=== PATIENT | male | born 1985 | race Caucasian/White ===

== ENCOUNTER 2021-02-02 20:42 | Emergency (ER) | payer BC ==
[2021-02-02 21:01] VITALS: BP 143/83; PULSE 78; TEMP 98; BMI 27.8
[2021-02-02 21:37] LABS: URINE APPEARANCE CLEAR; URINE BILIRUBIN NEGATIVE (NEGATIVE); URINE COLOR YELLOW; URINE GLUCOSE (UA) NEGATIVE (NEGATIVE); URINE KETONE NEGATIVE (NEGATIVE); URINE LEUK ESTERASE NEGATIVE (NEGATIVE); URINE NITRITE NEGATIVE (NEGATIVE); URINE PROTEIN NEGATIVE (NEGATIVE)
[2021-02-02] MEDS ORDERED: cefTRIAXone SODIUM 1 GM VIAL ONE (23:18)
== END 2021-02-02 23:25 | disposition home or self-care (01) ==
LOC: JER 20:42
DX: N50.812 Left testicular pain (principal)
CPT/HCPCS: 36415; 76870-TC; 81003; 87491; 87591; 99284-25